=== PATIENT | male | born 1965 | race Caucasian/White ===

== ENCOUNTER 2019-03-11 17:22 | Emergency (ER) | payer OTHER ==
[~2019-03-11] VITALS: Ht 167.6 cm; Wt 75.0 kg
[2019-03-11 17:25] VITALS: BP 137/88
== END 2019-03-12 02:34 | disposition home or self-care (01) ==
LOC: ER 17:22
DX: H60.92 Unspecified otitis externa, left ear (principal); E11.9 Type 2 diabetes mellitus without complications
CPT/HCPCS: 99283

== ENCOUNTER 2024-06-03 18:50 | Inpatient (IN) | payer OTHER ==
[~2024-06-03] VITALS: Ht 165.1 cm; Wt 81.6 kg
[2024-06-03] MEDS: SODIUM CHLORIDE 0.9% 1,000 ML IV ONE (20:10)
[2024-06-03 20:14] LABS: DIFFERENTIAL COMMENT 1; HEMATOCRIT. 35.3 % (42.0-52.0); MEAN CORPUSCULAR HEMOGLOBIN 31.8 pg (28.0-32.0); MEAN CORPUSCULAR HGB CONC 34.1 g/dL (31.0-37.0); MEAN CORPUSCULAR VOLUME 93.4 fL (80.0-94.0); MEAN PLATELET VOLUME 6.8 fl (7.4-10.4); PLATELET 339 x1000/uL (130-400); RED BLOOD CELL COUNT 3.78 mill/uL (4.7-6.1); RED CELL DISTRIBUTION WIDTH 13.6 % (11.6-14.6); WHITE BLOOD COUNT 13.3 x1000/uL (4.5-11.0)
[2024-06-03] MEDS: MORPHINE SULFATE 4 MG/ML INJ (FOR IV/IM USE) IV ONE (20:18)
[2024-06-03 20:22] LABS: CHLORIDE 110 mEq/L (98-107); POTASSIUM 4.5 mEq/L (3.5-5.1); SODIUM 133 mEq/L (136-145)
[2024-06-03 20:24] LABS: CALCIUM 8.6 mg/dL (8.7-10.4)
[2024-06-03] MEDS: PIPERACILLIN/TAZO 3.375G/50ML 50 ML IV STA (20:25)
[2024-06-03 20:27] LABS: BG CARBOXYHEMOGLOBIN 0.5 % (0.5-1.5); BG DEOXYHEMOGLOBIN 1.5 % (0.0-5.0); BG FRACTION INSPIRED OXYGEN 24; BG HCO3 ACT 5.6 mmol/L (21.0-28.0); BG OXYGEN SATURATION 98.5 % (94.0-98.0); BG PH 7.285 (7.350-7.450); BG SAMPLE SITE LEFT BRACHIAL; BG TOTAL HEMOGLOBIN 14.2 g/dL (13.5-17.5); BG VENT MODE NASAL CANNULA
[2024-06-03 20:28] LABS: CREATININE 1.6 mg/dL (0.6-1.3); GLUCOSE 198 mg/dL (70-105); UREA NITROGEN BLOOD 31 mg/dL (9-23)
[2024-06-03 20:29] LABS: PLATELET ESTIMATE NORMAL; TOXIC GRANULATION 1+; TOXIC VACUOLATION 1+; TROPONIN I HIGH SENSITIVITY 23 ng/L (3.0-53)
[2024-06-03 20:30] LABS: LACTIC ACID 3.2 mmol/L (0.4-2.0)
[2024-06-03 20:33] LABS: INR 1.1; PARTIAL THROMBOPLASTIN TIME 32.2 sec (23.4-31.0); PROTHROMBIN TIME 12.6 sec (9.6-11.0)
[2024-06-03 20:36] LABS: CARBON DIOXIDE < 10 mEq/L (21-32)
[2024-06-03 20:43] LABS: D-DIMER > 35.20 mg/L FEU (<0.50)
[2024-06-03] MEDS: SODIUM CHLORIDE 0.9% 1000ML BAG (SEPSIS BOLUS) IV ONE (20:54)
[2024-06-03 20:58] LABS: ALANINE AMINOTRANSFERASE 66 IU/L (10-49); ALBUMIN 3.4 g/dL (3.2-4.8); ASPARTATE AMINOTRANSFERASE 54 IU/L (<34); BILIRUBIN DIRECT 0.6 mg/dL (<=3.0); BILIRUBIN TOTAL 0.9 mg/dL (0.1-1.0); PROTEIN TOTAL 6.3 g/dL (6.0-8.3)
[2024-06-03 22:37] VITALS: BP 100/66; PULSE 123; RESP 25; O2SAT 100
[2024-06-03] MEDS ORDERED: DEXTROSE 50% WATER 50ML SYRINGE IV PRN (23:00)
[2024-06-03] MEDS ORDERED: IOHEXOL-350 100 ML BOTTLE ONE (23:31)
[2024-06-03] MEDS: CEFTRIAXONE 1GM/50ML 50 ML IV SCH (23:44)
[2024-06-03] MEDS: ENOXAPARIN 80MG/0.8ML SYR SUBCUT SCH (23:44)
[2024-06-03] MEDS ORDERED: NALOXONE HCL 0.4MG/ML VIAL IV PRN (23:45)
[2024-06-04] VITALS (71 sets, daily range): BP systolic 58–126; BP diastolic 41–84; PULSE 98–131; RESP 11–33; TEMP 36.78072–38.1416; O2SAT 99–100
[2024-06-04] MEDS: HYDROCODONE/ACETAMINOPHEN 5/325MG TABLET PO PRN (01:11)
[2024-06-04] MEDS ORDERED: SENN-308 (01:38)
[2024-06-04] MEDS ORDERED: ENOX40SY27 SQ (01:38)
[2024-06-04] MEDS ORDERED: HUM100IN SQ (01:38)
[2024-06-04] MEDS ORDERED: SENNOSIDES/DOCUSATE SOD 8.6/50MG TABLET PO PRN (02:00)
[2024-06-04] MEDS: SODIUM CHLORIDE 0.9% 1,000 ML IV NR (02:02)
[2024-06-04] MEDS: MAGNESIUM 2 G PREMIX 50 ML IV NR (02:02)
[2024-06-04] MEDS: ACETAMINOPHEN 325MG TABLET PO PRN (02:15)
[2024-06-04 02:39] LABS: TROPONIN I HIGH SENSITIVITY 33 ng/L (3.0-53)
[2024-06-04] MEDS: MIDODRINE HCL 5MG TABLET PO SCH ×2 (04:16→20:31)
[2024-06-04] MEDS: SODIUM CHLORIDE 0.9% 1,000 ML IV SCH (05:13)
[2024-06-04] MEDS: NOREPINEPHRINE 32 MG in DEXT 5% WATER 218 ML IV PRN (06:12)
[2024-06-04] MEDS: VANCOMYCIN 1.25GM/250ML IV NR (06:33)
[2024-06-04] MEDS ORDERED: HEPARIN 25,000 UNITS PREMIX 250 ML IV SCH ×2 (07:00→07:15)
[2024-06-04] MEDS: BLOOD SUGAR DIAGNOSTIC STRIP TEST SCH (07:50)
[2024-06-04] MEDS: HEPARIN 80 UNITS/KG BOLUS IV NR (08:05)
[2024-06-04] MEDS: SODIUM BICARBONATE 8.4% 50MEQ/50ML SYR IV NR ×2 (08:22→16:26)
[2024-06-04] MEDS: HEPARIN 25,000 UNITS PREMIX 250 ML IV SCH (08:36)
[2024-06-04] MEDS: PIPERACILLIN/TAZO 3.375G/50ML 50 ML IV SCH ×2 (08:39→15:23)
[2024-06-04] MEDS: INSULIN LISPRO 100 UNITS/ML SUBCUT SCH (08:40)
[2024-06-04] MEDS: INS NPH/REG HM 70-30 10ML VIAL (HUMULIN 70-30) SUBCUT SCH (08:41)
[2024-06-04 10:50] LABS: HEMATOCRIT. 31.5 % (42.0-52.0); HEMOGLOBIN. 10.2 g/dL (14.0-18.0); MEAN CORPUSCULAR HEMOGLOBIN 32.1 pg (28.0-32.0); MEAN CORPUSCULAR HGB CONC 32.3 g/dL (31.0-37.0); MEAN CORPUSCULAR VOLUME 99.1 fL (80.0-94.0); MEAN PLATELET VOLUME 7.9 fl (7.4-10.4); PLATELET 233 x1000/uL (130-400); RED BLOOD CELL COUNT 3.18 mill/uL (4.7-6.1); RED CELL DISTRIBUTION WIDTH 14.2 % (11.6-14.6)
[2024-06-04 10:58] LABS: CALCIUM 7.7 mg/dL (8.7-10.4); CHLORIDE 110 mEq/L (98-107); POTASSIUM 4.5 mEq/L (3.5-5.1); SODIUM 133 mEq/L (136-145)
[2024-06-04 11:03] LABS: CREATININE 1.8 mg/dL (0.6-1.3); GLUCOSE 250 mg/dL (70-105)
[2024-06-04 11:04] LABS: LDL CHOLESTEROL 45 mg/dL (5-100); TRIGLYCERIDE 175 mg/dL (0-150); UREA NITROGEN BLOOD 27 mg/dL (9-23)
[2024-06-04 11:05] LABS: CHOLESTEROL 105 mg/dL (<200)
[2024-06-04 11:06] LABS: HDL CHOLESTEROL 27 mg/dL (>55)
[2024-06-04 11:24] LABS: DIFFERENTIAL COMMENT 1
[2024-06-04 11:25] LABS: WHITE BLOOD COUNT 65.6 x1000/uL (4.5-11.0)
[2024-06-04 11:37] LABS: CARBON DIOXIDE < 10 mEq/L (21-32)
[2024-06-04] MEDS ORDERED: DEXTROSE 5% WATER 1,000 ML IV SCH (11:45)
[2024-06-04 12:35] LABS: PLATELET ESTIMATE NORMAL
[2024-06-04 12:39] LABS: CHLORIDE 110 mEq/L (98-107); POTASSIUM 4.6 mEq/L (3.5-5.1); SODIUM 133 mEq/L (136-145)
[2024-06-04 12:41] LABS: CALCIUM 7.8 mg/dL (8.7-10.4)
[2024-06-04 12:45] LABS: CREATININE 1.8 mg/dL (0.6-1.3); GLUCOSE 247 mg/dL (70-105); UREA NITROGEN BLOOD 27 mg/dL (9-23)
[2024-06-04 12:47] LABS: ALANINE AMINOTRANSFERASE 62 IU/L (10-49); ASPARTATE AMINOTRANSFERASE 59 IU/L (<34); BILIRUBIN TOTAL 1.3 mg/dL (0.1-1.0)
[2024-06-04 12:48] LABS: PROTEIN TOTAL 5.9 g/dL (6.0-8.3)
[2024-06-04] MEDS: ENOXAPARIN 80MG/0.8ML SYR SUBCUT SCH (12:59)
[2024-06-04] MEDS: SODIUM BICARBONATE 100 MEQ in DEXTROSE 5% WATER 1,000 ML IV SCH (12:59)
[2024-06-04] MEDS ORDERED: HEPARIN BOLUS PRN aPTT 37-44 IV (13:00)
[2024-06-04] MEDS ORDERED: HEPARIN BOLUS PRN aPTT <36 IV (13:00)
[2024-06-04 13:28] LABS: CARBON DIOXIDE < 10 mEq/L (21-32)
[2024-06-04] MEDS ORDERED: LIDOCAINE HCL 1% 10 MG/ML 10ML VIAL ONE (13:32)
[2024-06-04 14:26] LABS: BG BASE EXCESS -16.1 mmol/L (-2.0-3.0); BG CARBOXYHEMOGLOBIN 0.3 % (0.5-1.5); BG DEOXYHEMOGLOBIN 1.1 % (0.0-5.0); BG FRACTION INSPIRED OXYGEN 258; BG HCO3 ACT 7.6 mmol/L (21.0-28.0); BG METHEMOGLOBIN 0.3 % (0.5-1.5); BG OXYGEN SATURATION 98.9 % (94.0-98.0); BG OXYHEMOGLOBIN 98.3 % (94.0-98.0); BG PCO2 14.6 mmHg (35.0-48.0); BG PH 7.332 (7.350-7.450); BG PO2 159.8 mmHg (83.0-108.0); BG SAMPLE SITE RIGHT RADIAL; BG TOTAL HEMOGLOBIN 10.2 g/dL (13.5-17.5); BG VENT MODE NASAL CANNULA
[2024-06-04] MEDS: SODIUM BICARBONATE 150 MEQ in DEXTROSE 5% WATER 850 ML IV SCH (15:19)
[2024-06-04] MEDS: CITRIC ACID/SODIUM CITRATE SOLN 30ML UDC PO SCH (15:20)
[2024-06-04] MEDS ORDERED: CEFEPIME 2GM IN DEXT 5% 100ML IV SCH (17:00)
[2024-06-04 17:39] LABS: CLARITY URINE TURBID (CLEAR); COLOR URINE YELLOW (YELLOW); GLUCOSE URINE NEGATIVE (NEGATIVE); KETONES URINE NEGATIVE (NEGATIVE); LEUKOCYTE ESTERASE URINE 3+ (NEGATIVE); NITRITE URINE POSITIVE (NEGATIVE); OCCULT BLOOD URINE 3+ (NEGATIVE); PROTEIN URINE 1+ (NEGATIVE); SPECIFIC GRAVITY URINE 1.021 (1.005-1.030); UROBILINOGEN URINE 0.2 E.U./dL (0.2-1.0)
[2024-06-04 18:25] LABS: BACTERIA URINE 2+; SQUAMOUS EPITHELIAL CELL URINE 1+ /lpf (RARE/1+); WBC URINE TNTC /hpf (0-2)
[2024-06-04] MEDS: CEFEPIME 1GM/50ML 50 ML IV SCH (18:39)
[2024-06-05] VITALS (85 sets, daily range): BP systolic 72–119; BP diastolic 47–92; PULSE 83–138; RESP 15–28; TEMP 36.72516–37.72524; O2SAT 94–100
[2024-06-05] MEDS ORDERED: PHENYLEPHRINE 50 MG in DEXT 5% WATER 245 ML IV PRN (01:15)
[2024-06-05] MEDS: PHENYLEPHRINE 100 MG in DEXT 5% WATER 250 ML IV PRN (01:35)
[2024-06-05] MEDS: AMIODARONE HCL 900 MG in DEXT 5% WATER 482 ML IV PRN (01:36)
[2024-06-05 05:29] LABS: HEMATOCRIT. 27.1 % (42.0-52.0); HEMOGLOBIN. 9.4 g/dL (14.0-18.0); MEAN CORPUSCULAR HEMOGLOBIN 31.6 pg (28.0-32.0); MEAN CORPUSCULAR HGB CONC 34.8 g/dL (31.0-37.0); MEAN CORPUSCULAR VOLUME 90.8 fL (80.0-94.0); MEAN PLATELET VOLUME 7.8 fl (7.4-10.4); PLATELET 217 x1000/uL (130-400); RED BLOOD CELL COUNT 2.98 mill/uL (4.7-6.1); WHITE BLOOD COUNT 39.7 x1000/uL (4.5-11.0)
[2024-06-05 05:34] LABS: CHLORIDE 106 mEq/L (98-107); POTASSIUM 3.1 mEq/L (3.5-5.1); SODIUM 140 mEq/L (136-145)
[2024-06-05 05:35] LABS: CALCIUM 7.6 mg/dL (8.7-10.4); CARBON DIOXIDE 22 mEq/L (21-32)
[2024-06-05 05:39] LABS: UREA NITROGEN BLOOD 29 mg/dL (9-23)
[2024-06-05 05:40] LABS: CREATININE 1.4 mg/dL (0.6-1.3); GLUCOSE 174 mg/dL (70-105)
[2024-06-05 05:42] LABS: ALANINE AMINOTRANSFERASE 43 IU/L (10-49); ALBUMIN 2.9 g/dL (3.2-4.8); ASPARTATE AMINOTRANSFERASE 41 IU/L (<34); BILIRUBIN DIRECT 0.3 mg/dL (<=3.0); PHOSPHORUS 2.7 mg/dL (2.5-4.9)
[2024-06-05 05:43] LABS: BILIRUBIN TOTAL 0.5 mg/dL (0.1-1.0); PROTEIN TOTAL 5.7 g/dL (6.0-8.3)
[2024-06-05 06:35] LABS: DIFFERENTIAL COMMENT 1
[2024-06-05] MEDS ORDERED: VANCOMYCIN 1G PREMIX 200 ML IV SCH (08:00)
[2024-06-05] MEDS: FAMOTIDINE 20MG/2ML VIAL IV SCH (08:27)
[2024-06-05] MEDS: POTASSIUM CHLORIDE 20MEQ TABLET SR PO NR (08:28)
[2024-06-05] MEDS: MAGNESIUM 2 G PREMIX 50 ML IV NR (09:02)
[2024-06-05] MEDS: SODIUM CHLORIDE 0.9% 1,000 ML IV SCH (09:10)
[2024-06-05 09:56] LABS: PLATELET ESTIMATE NORMAL
[2024-06-05 09:57] LABS: TOXIC VACUOLATION FEW
[2024-06-05] MEDS: MIDODRINE HCL 5MG TABLET PO SCH (12:35)
[2024-06-05] MEDS: CEFEPIME 2GM/100ML 100 ML IV SCH (16:12)
[2024-06-05] MEDS ORDERED: NOREPINEPHRINE 32 MG in SODIUM CHLORIDE 0.9% 218 ML IV PRN (17:30)
[2024-06-05] MEDS: PHENYLEPHRINE 100 MG in SODIUM CHLORIDE 0.9% 240 ML IV PRN (22:27)
[2024-06-06] VITALS (99 sets, daily range): BP systolic 81–140; BP diastolic 45–94; PULSE 85–116; RESP 13–33; TEMP 36.3918–37.66968; O2SAT 94–100
[2024-06-06] MEDS: AMIODARONE 200MG TABLET PO SCH (00:50)
[2024-06-06 07:44] LABS: HEMATOCRIT. 29.5 % (42.0-52.0); HEMOGLOBIN. 10.2 g/dL (14.0-18.0); MEAN CORPUSCULAR HEMOGLOBIN 31.3 pg (28.0-32.0); MEAN CORPUSCULAR HGB CONC 34.6 g/dL (31.0-37.0); MEAN CORPUSCULAR VOLUME 90.5 fL (80.0-94.0); MEAN PLATELET VOLUME 8.1 fl (7.4-10.4); PLATELET 221 x1000/uL (130-400); RED BLOOD CELL COUNT 3.26 mill/uL (4.7-6.1); RED CELL DISTRIBUTION WIDTH 13.9 % (11.6-14.6); WHITE BLOOD COUNT 38.8 x1000/uL (4.5-11.0)
[2024-06-06 07:50] LABS: CHLORIDE 108 mEq/L (98-107); SODIUM 141 mEq/L (136-145)
[2024-06-06 07:51] LABS: CALCIUM 7.5 mg/dL (8.7-10.4); CARBON DIOXIDE 22 mEq/L (21-32)
[2024-06-06 07:52] LABS: DIFFERENTIAL COMMENT 1
[2024-06-06 07:55] LABS: UREA NITROGEN BLOOD 19 mg/dL (9-23)
[2024-06-06 07:56] LABS: GLUCOSE 101 mg/dL (70-105)
[2024-06-06 07:58] LABS: ALANINE AMINOTRANSFERASE 34 IU/L (10-49); ALBUMIN 3.1 g/dL (3.2-4.8); ASPARTATE AMINOTRANSFERASE 32 IU/L (<34); BILIRUBIN DIRECT 0.2 mg/dL (<=3.0)
[2024-06-06 07:59] LABS: BILIRUBIN TOTAL 0.4 mg/dL (0.1-1.0)
[2024-06-06] MEDS ORDERED: NOREPINEPHRINE 32 MG in SODIUM CHLORIDE 0.9% 218 ML IV PRN (12:00)
[2024-06-06] MEDS: POTASSIUM CHLORIDE 20MEQ TABLET SR PO NR ×2 (12:34→17:47)
[2024-06-06 15:07] LABS: PLATELET ESTIMATE NORMAL
[2024-06-06] MEDS ORDERED: POTASSIUM PHOSPHATE 15 MMOL in SODIUM CHLORIDE 0.9% 245 ML IV NR (18:00)
[2024-06-06] MEDS: SODIUM PHOSPHATE 15 MMOL in SODIUM CHLORIDE 0.9% 245 ML IV NR (19:03)
[2024-06-06] MEDS: CEFEPIME 2GM/100ML 100 ML IV SCH (20:56)
[2024-06-07] VITALS (81 sets, daily range): BP systolic 79–116; BP diastolic 53–90; PULSE 71–111; RESP 5–29; TEMP 36.6696–36.9474; O2SAT 93–100
[2024-06-07 05:52] LABS: BASOPHILS % 0.3 % (0.0-2.0); DIFFERENTIAL COMMENT 0; EOSINOPHILS % 0.8 % (0.0-5.0); HEMOGLOBIN. 8.8 g/dL (14.0-18.0); LYMPHOCYTES % 8.2 % (20.0-50.0); MEAN CORPUSCULAR HEMOGLOBIN 31.3 pg (28.0-32.0); MEAN CORPUSCULAR HGB CONC 33.9 g/dL (31.0-37.0); MEAN CORPUSCULAR VOLUME 92.4 fL (80.0-94.0); MONOCYTES % 3.7 % (2.0-8.0); PLATELET 196 x1000/uL (130-400); RED BLOOD CELL COUNT 2.81 mill/uL (4.7-6.1); RED CELL DISTRIBUTION WIDTH 13.7 % (11.6-14.6); WHITE BLOOD COUNT 22.3 x1000/uL (4.5-11.0)
[2024-06-07 06:00] LABS: CARBON DIOXIDE 21 mEq/L (21-32); CHLORIDE 110 mEq/L (98-107); POTASSIUM 3.5 mEq/L (3.5-5.1); SODIUM 142 mEq/L (136-145)
[2024-06-07 06:01] LABS: CALCIUM 7.4 mg/dL (8.7-10.4)
[2024-06-07 06:05] LABS: CREATININE 0.9 mg/dL (0.6-1.3)
[2024-06-07 06:06] LABS: GLUCOSE 83 mg/dL (70-105); UREA NITROGEN BLOOD 16 mg/dL (9-23)
[2024-06-07 06:08] LABS: PHOSPHORUS 2.8 mg/dL (2.5-4.9)
[2024-06-07 09:04] LABS: BG BASE EXCESS -2.8 mmol/L (-2.0-3.0); BG CARBOXYHEMOGLOBIN 0.8 % (0.5-1.5); BG DEOXYHEMOGLOBIN 3.9 % (0.0-5.0); BG FRACTION INSPIRED OXYGEN 21; BG HCO3 ACT 20.2 mmol/L (21.0-28.0); BG METHEMOGLOBIN 0.3 % (0.5-1.5); BG OXYGEN SATURATION 96.1 % (94.0-98.0); BG PCO2 28.7 mmHg (35.0-48.0); BG PH 7.466 (7.350-7.450); BG PO2 78.3 mmHg (83.0-108.0); BG SAMPLE SITE RIGHT RADIAL; BG TOTAL HEMOGLOBIN 9.1 g/dL (13.5-17.5); BG VENT MODE ROOM AIR
[2024-06-07] MEDS: CEFTRIAXONE 2GM/50ML 50 ML IV SCH (16:46)
[2024-06-07] MEDS: MAGNESIUM 2 G PREMIX 50 ML IV NR (16:47)
[2024-06-07] MEDS: MIDODRINE HCL 5MG TABLET PO SCH (21:00)
[2024-06-08] VITALS: BP 112/78; PULSE 93; RESP 18; TEMP 36.50292; O2SAT 99
[2024-06-08 04:00] VITALS: BP 105/69; PULSE 83; RESP 18; TEMP 36.50292; O2SAT 99
[2024-06-08 05:58] LABS: BASOPHILS % 0.6 % (0.0-2.0); DIFFERENTIAL COMMENT 0; EOSINOPHILS % 2.3 % (0.0-5.0); HEMATOCRIT. 26.8 % (42.0-52.0); HEMOGLOBIN. 8.9 g/dL (14.0-18.0); LYMPHOCYTES % 16.5 % (20.0-50.0); MEAN CORPUSCULAR HEMOGLOBIN 30.9 pg (28.0-32.0); MEAN CORPUSCULAR HGB CONC 33.3 g/dL (31.0-37.0); MEAN CORPUSCULAR VOLUME 92.6 fL (80.0-94.0); MEAN PLATELET VOLUME 8.6 fl (7.4-10.4); MONOCYTES % 7.8 % (2.0-8.0); NEUTROPHILS % 72.8 % (40.0-76.0); PLATELET 235 x1000/uL (130-400); RED BLOOD CELL COUNT 2.89 mill/uL (4.7-6.1); RED CELL DISTRIBUTION WIDTH 13.8 % (11.6-14.6); WHITE BLOOD COUNT 11.9 x1000/uL (4.5-11.0)
[2024-06-08 06:09] LABS: CALCIUM 8.2 mg/dL (8.7-10.4); CARBON DIOXIDE 20 mEq/L (21-32); CHLORIDE 110 mEq/L (98-107); POTASSIUM 3.7 mEq/L (3.5-5.1); SODIUM 140 mEq/L (136-145)
[2024-06-08 06:14] LABS: GLUCOSE 122 mg/dL (70-105)
[2024-06-08 06:15] LABS: UREA NITROGEN BLOOD 16 mg/dL (9-23)
[2024-06-08 06:17] LABS: PHOSPHORUS 2.9 mg/dL (2.5-4.9)
[2024-06-08 08:00] VITALS: BP 113/68; PULSE 79; RESP 18; TEMP 37.11408; O2SAT 97
[2024-06-08 12:00] VITALS: BP 112/70; PULSE 82; RESP 18; TEMP 36.61404; O2SAT 98
[2024-06-08 16:26] VITALS: BP 102/56; PULSE 82; RESP 18; TEMP 36.50292; O2SAT 98
[2024-06-08 20:00] VITALS: BP 114/83; PULSE 103; RESP 20; TEMP 36.28068; O2SAT 98
[2024-06-09] VITALS (8 sets, daily range): BP systolic 106–136; BP diastolic 68–81; PULSE 62–93; RESP 18–20; TEMP 36.22512–36.78072; O2SAT 97–100
[2024-06-09 06:43] LABS: CHLORIDE 109 mEq/L (98-107); POTASSIUM 3.7 mEq/L (3.5-5.1); SODIUM 142 mEq/L (136-145)
[2024-06-09 06:44] LABS: CALCIUM 8.7 mg/dL (8.7-10.4); CARBON DIOXIDE 22 mEq/L (21-32)
[2024-06-09 06:49] LABS: CREATININE 0.9 mg/dL (0.6-1.3); GLUCOSE 124 mg/dL (70-105); UREA NITROGEN BLOOD 15 mg/dL (9-23)
[2024-06-09 06:59] LABS: BASOPHILS % 0.5 % (0.0-2.0); EOSINOPHILS % 4.1 % (0.0-5.0); LYMPHOCYTES % 21.4 % (20.0-50.0); MEAN CORPUSCULAR VOLUME 91.4 fL (80.0-94.0); MEAN PLATELET VOLUME 8.3 fl (7.4-10.4); PLATELET 264 x1000/uL (130-400); RED BLOOD CELL COUNT 3.25 mill/uL (4.7-6.1); RED CELL DISTRIBUTION WIDTH 13.9 % (11.6-14.6)
[2024-06-09 07:20] LABS: DIFFERENTIAL COMMENT 1
[2024-06-09 07:21] LABS: HEMATOCRIT. 29.7 % (42.0-52.0); HEMOGLOBIN. 10.4 g/dL (14.0-18.0)
[2024-06-09] MEDS: MAGNESIUM 2 G PREMIX 50 ML IV NR (10:06)
== END 2024-06-09 20:50 | disposition short-term general hospital (02) | DRG 871 ==
LOC: ER 18:50 → 5EST 20:49 → EDBEDREQ 20:55 → EDBEDREQTM 20:55 → EDBEDREQSVC 20:55 → CVICU 06-04 05:29 → 8WST 06-07 22:45
PROVIDERS: ADMIT Internal Medicine; ATTEND Internal Medicine
PROC: 02HV33Z Insertion of Infusion Device into Superior Vena Cava, Percutaneous Approach (ICD-10-PCS; principal; 2024-06-04)
PROC: B548ZZA Ultrasonography of Superior Vena Cava, Guidance (ICD-10-PCS; 2024-06-04)
DX: A41.9 Sepsis, unspecified organism (principal); I26.99 Other pulmonary embolism without acute cor pulmonale; R65.21 Severe sepsis with septic shock; N17.0 Acute kidney failure with tubular necrosis; J96.90 Respiratory failure, unspecified, unspecified whether with hypoxia or hypercapnia; N39.0 Urinary tract infection, site not specified; I82.3 Embolism and thrombosis of renal vein; I47.10 Supraventricular tachycardia, unspecified; D64.9 Anemia, unspecified; Z20.822 Contact with and (suspected) exposure to COVID-19; E11.65 Type 2 diabetes mellitus with hyperglycemia; E83.42 Hypomagnesemia; N18.9 Chronic kidney disease, unspecified; E78.5 Hyperlipidemia, unspecified; B96.1 Klebsiella pneumoniae [K. pneumoniae] as the cause of diseases classified elsewhere; R94.31 Abnormal electrocardiogram [ECG] [EKG]; E83.51 Hypocalcemia; I12.9 Hypertensive chronic kidney disease with stage 1 through stage 4 chronic kidney disease, or unspecified chronic kidney disease; E11.22 Type 2 diabetes mellitus with diabetic chronic kidney disease; E87.6 Hypokalemia; D72.823 Leukemoid reaction; B96.89 Other specified bacterial agents as the cause of diseases classified elsewhere; I25.10 Atherosclerotic heart disease of native coronary artery without angina pectoris; Z85.51 Personal history of malignant neoplasm of bladder; Z90.6 Acquired absence of other parts of urinary tract; Z86.711 Personal history of pulmonary embolism; Z92.21 Personal history of antineoplastic chemotherapy; Z93.6 Other artificial openings of urinary tract status; Z95.828 Presence of other vascular implants and grafts; Z82.49 Family history of ischemic heart disease and other diseases of the circulatory system
CPT/HCPCS: 36415; 36573; 36600; 71045; 71275; 74174; 80048; 80053; 80061; 80076; 81003; 82010; 82375; 82805; 82962; 83036; 83605; 83735; 83880; 84100; 84145; 84484; 84550; 85025; 85379; 86850; 86900; 87077; 87186; 87426; 93005; 97162; 99285; C1725; J0692; J0696; J1644; J1650; J1815; J2270; J2543; J3370; J3475; J3490; J7030; J7050; J7060; J7070; Q9967